=== PATIENT | female | born 1955 | race Caucasian/White ===

== ENCOUNTER 2023-06-05 10:43 | Outpatient (CLI) | payer MEDICARE, SELFPAY ==
--- NOTE | 2023-06-05 10:52 | MR_ITS ---
WS: [id number] MRI BRAIN WITH HIGH-RESOLUTION IMAGING THROUGH THE INTERNAL AUDITORY CANALS WITHOUT AND WITH CONTRAST HISTORY: MIXED CONDUCTIVE SENSORINEURAL HEARING LOSS COMPARISON: None available. TECHNIQUE: Multiplanar, multisequence imaging is performed through the brain. Additional 3 mm imaging performed in multiple planes through the internal auditory canal. Postcontrast imaging with 20 ml's of MultiHance. No acute intracranial hemorrhage, midline shift, edema or mass effect. Mild bilateral symmetric atrophy. Mild small vessel ischemic disease. There are a few very minimal isidro bcortical T2 and FLAIR signal abnormalities. No prior infarct. Ventricles and extra-axial spaces are normal. No inferior displacement of cerebellar tonsils. Clivus and pituitary gland are normal. Internal and external auditory canals: Unremarkable. Cranial nerves VII and VIII complexes: Unremarkable. No enhancement or mass. Cerebellopontine angles: Normal. Paranasal sinuses: Normal. Mastoid air cells: Mild LEFT mastoid air cell effusion. Calvarium and scalp: Normal. Visualized [place] and dural venous sinuses demonstrate no abnormality. IMPRESSION: 1. Unremarkable MRI internal auditory canals. No displacement along the cerebellopontine angles or th e internal auditory canals. No area of abnormal enhancement. 5th cranial nerves are also normal. 2. No enhancing masses. 3. No prior infarcts. Mild small vessel ischemic changes.
[2023-06-05] MEDS: gadobenate dimeglumine 20 mL vial IV (11:45)
== END 2023-06-05 10:44 | disposition home or self-care (01) ==
LOC: RAD 10:44
PROVIDERS: Visit Provider Specialist
DX: H90.8 Mixed conductive and sensorineural hearing loss, unspecified (principal)
CPT/HCPCS: 70553; A9577